=== PATIENT | female | born 1995 | race Hispanic/Latino ===

== ENCOUNTER → 2023-02-03 | Outpatient (CLI) | payer OTHER | LOC: M PLAIMG 14:16 | PROVIDERS: ATTEND Physician Assistant Surgical | DX: M65.342 Trigger finger, left ring finger (principal); M67.442 Ganglion, left hand ==

== ENCOUNTER 2023-03-23 12:57 | Emergency (ER) | payer OTHER ==
[~2023-03-23] VITALS: Ht 157.5 cm; Wt 65.5 kg
[2023-03-23] MEDS ORDERED: IBUPROFEN 800 MG TAB PO ONE (15:05)
[2023-03-23 16:57] VITALS: BP 119/68; TEMP 98.6; O2SAT 98
== END 2023-03-23 17:06 | disposition home or self-care (01) ==
LOC: M ED 12:57
DX: S09.90XA Unspecified injury of head, initial encounter (principal); S30.0XXA Contusion of lower back and pelvis, initial encounter; M54.2 Cervicalgia; Y92.69 Other specified industrial and construction area as the place of occurrence of the external cause; W00.0XXA Fall on same level due to ice and snow, initial encounter; Y99.0 Civilian activity done for income or pay

== ENCOUNTER → 2024-03-18 | Outpatient (REF) | LOC: M PLAIMG 10:44 | PROVIDERS: ATTEND Internal Medicine | DX: R52 Pain, unspecified (principal); R06.02 Shortness of breath ==